=== PATIENT | female | born 1965 | race African-American/Black ===

== ENCOUNTER 2016-08-28 18:33 | Emergency (ER) | payer SELFPAY ==
[~2016-08-28 18:33] MED LIST: CARTIA XT180 MG/24 PO; FORTAMET500 MG PO; SPIRO50 PO; X5 PO
== END 2016-08-28 22:36 | disposition left against medical advice (07) ==
LOC: ER 18:33
DX: Z53.21 Procedure and treatment not carried out due to patient leaving prior to being seen by health care provider (principal)
CPT/HCPCS: 93005